=== PATIENT | male | born 1965 | race Caucasian/White ===

== ENCOUNTER 2019-01-27 07:46 | Day surgery (SDC) | payer OTHER ==
[2019-01-27 08:01] VITALS: BMI 29.8
[2019-01-27] MEDS ORDERED: DEXAMETHASONE SOD PHOSPHATE/PF 10 MG/ML SDV ONE (08:16)
[2019-01-27] MEDS ORDERED: MIDAZOLAM HCL 2 MG/2 ML SINGLE DOSE VIAL ONE (08:30)
[2019-01-27] MEDS ORDERED: CEFAZOLIN 2 GM in DEXTROSE 5%-WATER - 100 ML IVPB ONE (08:33)
[2019-01-27] MEDS ORDERED: oxyCODONE HCL 10 MG SUSTAINED ACTING TABLET PO STA (08:33)
[2019-01-27] MEDS ORDERED: GABAPENTIN 300 MG CAPSULE (FP) PO STA (08:33)
--- NOTE | 2019-01-27 08:35 | HP ---
History & Physical Update - History History: No Change - Physical Physical: No Change - Assessment Assessment: No Change - Plan Plan: No Change (no changes since visit with Dr Ramey on 01/21/19)
[2019-01-27] MEDS ORDERED: PROPOFOL 20 ML ONE (09:18)
[2019-01-27] MEDS ORDERED: SUCCINYLCHOLINE CHLORIDE 200 MG/10 ML VIAL ONE (09:19)
[2019-01-27] MEDS ORDERED: ceFAZolin SODIUM 1 GM VIAL ONE (09:43)
[2019-01-27] MEDS ORDERED: ONDANSETRON 4 MG/2 ML VIAL ONE ×2 (09:43→10:45)
[2019-01-27] MEDS ORDERED: DEXAMETHASONE SOD PHOSPHATE 4 MG/1 ML VIAL ONE ×2 (09:43→10:45)
[2019-01-27] MEDS ORDERED: LIDOCAINE 1%/EPI 1:100000 (50 ML MULTI DOSE VIAL) INF ONE (09:55)
[2019-01-27] MEDS ORDERED: THROMBIN (BOVINE) 5,000 UNIT VIAL TP ONE (09:56)
[2019-01-27] MEDS ORDERED: GELATIN SPONGE,ABSORBABLE 1 GM PACKET TP ONE (09:56)
[2019-01-27] MEDS ORDERED: methylPREDNISolone ACET (DEPO) 40 MG/1 ML VIAL IM ONE (11:09)
--- NOTE | 2019-01-27 11:26 | OP ---
Operative Note - Note: Operative Date: 01/27/19 Pre-Operative Diagnosis: lumbar stenosis, HNP Operation: L34-L45 laminectomy Post-Operative Diagnosis: Same as Pre-op Surgeon: Jona Ramey Senior Materials Analyst: Vanessa Gonzalez Anesthesiologist/FEDERAL AIR MARSHAL: Rosenda Manley Anesthesia: Spinal Specimens Removed: L34/L45 disc Estimated Blood Loss (mls): 15 Fluid Volume Replaced (mls): 1,000 Operative Report Dictated: Yes
--- NOTE | 2019-01-27 11:27 | SURG ---
Surgery Senior Infrastructure Engineer Note Senior Infrastructure Engineer: Vanessa Gonzalez PA-C Date of Service: 01/27/19 Diagnosis: lumbar stenosis, HNP Procedure: L34/L45 laminectomy/discectomy I was present for the entirety of the operative procedure. For further detail, please refer to operative report. Visit type - Case Type Case Type: Scheduled - Emergency Emergency Visit: No - New patient This patient is new to me today: Yes Date on this admission: 01/27/19
[2019-01-27] MEDS ORDERED: oxyCODONE HCL 5 MG TABLET PO PRN (13:11)
[2019-01-27] MEDS ORDERED: ONDANSETRON 4 MG/2 ML VIAL IVPUSH PRN (13:11)
[2019-01-27] MEDS ORDERED: LACTATED RINGERS SOLUTION 1,000 ML IV SCH (13:15)
[2019-01-27 13:32] VITALS: BP 130/80; PULSE 75; TEMP 98.4
--- NOTE | 2019-01-28 09:32 | OP ---
DATE OF OPERATION: 01/27/2019 PREOPERATIVE DIAGNOSIS: Spinal stenosis, L3 to L5. POSTOPERATIVE DIAGNOSIS: Spinal stenosis, L3 to L5. PROCEDURE PERFORMED: Laminectomy, L3-4, L4-5. SURGEON: Jona Ramey MD SUPPLY CHAIN PROJECT MANAGER: SANJU Aleman COMPLICATIONS: None. DISPOSITION: Patient brought to PACU in stable condition. ANESTHESIA: Spinal/TLIP block. INDICATION FOR SURGERY: The patient is a 53-year-old gentleman who has been suffering from pain from his back down his legs. X-rays and MRI were completed which noted that he had spinal stenosis from L3 down to L5. He had gone through an exhaustive course of treatment for this, which included medications, physical therapy versus injections. Unfortunately, his pain continued to persist despite all this. At this point, risks, benefits, and alternatives were discussed, and the patient consented to surgery. DESCRIPTION OF PROCEDURE: Patient was brought to the operating room by the anesthesia staff. After appropriate patient identification was performed, spinal anesthesia was given. A TLIP block was also given. Patient was able to position himself prone onto the OR table with all areas of bony prominences well padded at this time. Two needles were placed into his back to eugenia off the L3 to L5 levels. X-ray was taken to confirm this as correct. Lyman were removed, and 10 mL of lidocaine with epinephrine were injected in his back at this time. His back was prepped and draped in a sterile manner. At this point, timeout was completed. An incision was made from the top of L3 down to the bottom of L5. Dissection was carried down to the fascia. Fascia was split open at this time, and appropriate retractors were then placed in. A spinal needle was placed onto the L4 lamina to eugenia off the L4-5 level. X-ray was taken to confirm this as correct. Needle was removed, and the microscope was brought in. The interspinous ligament at L3-4 and L4-5 was removed. The spinous process of L4 was removed. The lamina of L4 was removed. The flavum was removed. A complete decompression was performed such that the L4 and L5 nerve roots appeared to be well decompressed. A massive disk herniation was noted at this time and the disk herniation was removed. By the end of the procedure, the L5 nerve roots appeared to be well decompressed. All bleeding was well controlled at this time. Steroid was placed over the nerve root. Powder balls were placed over that. The fascia was closed with a No. 1 Vicryl suture. Subcutaneous tissues were closed with 2-0 Vicryl suture. Skin was closed with 3-0 Monocryl suture. Dermabond was applied. Steri-Strips were applied. A sterile dressing was applied. Patient was placed supine on the OR bed, brought to the PACU in stable condition. Linda SEPULVEDA/[id number] MTDD
--- NOTE | 2019-01-29 15:21 | PATH ---
Surgical Pathology Report Patient Name: RICHARD SARMIENTO [facility]. Rec. #: [id number] /Age/Gender: 1965 (Age: 53) / M Account: [id number] Location: [facility] AM[facility] Taken: 01/27/2019 Received: 01/27/2019 Reported: 01/29/2019 Physicians: Jona Ramey M.D. Specimen(s) Received L4-5 HERNIATED DISC Clinical History Lumbar stenosis Final Diagnosis L4-5 HERNIATED DISC, LAMINECTOMY: CARTILAGE WITH DEGENERATIVE CHANGES. Electronically Signed Vanessa Mclean M.D. Gross Description Received in formalin, labeled "L4-5 herniated disc" is a 2.7 x 2 x 0.8 cm aggregate of fibrocartilaginous tissue. Plan Manager tissue is submitted in one cassette. AE/01/27/2019 ebram/01/27/2019
== END 2019-01-27 13:25 | disposition home or self-care (01) ==
LOC: FASU 07:46
PROVIDERS: ATTEND Orthopaedic Surgery Orthopaedic Surgery of the Spine
PROC: 01NB0ZZ Release Lumbar Nerve, Open Approach (ICD-10-PCS; principal; 2019-01-27 09:17)
DX: M48.061 Spinal stenosis, lumbar region without neurogenic claudication (principal); M48.07 Spinal stenosis, lumbosacral region
CPT/HCPCS: 72100-TC-FY; 76000-TC-FY; 88304-TC; 94760